=== PATIENT | male | born 1935 | race Caucasian/White ===

== ENCOUNTER → 2016-04-09 | Outpatient (CLI) | payer BC, MEDICARE, OTHER ==
[~2016-04-09] MED LIST: ASPI1TAB35 PO; CPRDOTS OT; LSN5 PO; METO25TA3 PO; ZCR40 PO
== END | disposition home or self-care (01) ==
LOC: C.LABBFT 07:38
PROVIDERS: ATTEND Urology
DX: N40.1 Benign prostatic hyperplasia with lower urinary tract symptoms (principal)

== ENCOUNTER → 2016-10-08 | Outpatient (CLI) | payer MEDICARE ==
[~2016-10-08] MED LIST changes: +OPTIRAY 320 IV PRN
[2016-10-08 11:12] LABS: ISTAT CREATININE 1.4 mg/dl (0.6-1.3); ISTAT HEMOGLOBIN 13.6 g/dl (14.0-18.0); ISTAT IONIZED CALCIUM 1.22 mmol/l (1.12-1.32)
--- NOTE | 2016-10-08 11:27 | DIAGNOSTIC IMAGING REPORT ---
ABDOMEN COMBO CT DOSE: 1076.84 mGycm HISTORY: Pancreatic cyst W W/OUT, PANCREAS TIC CYST TECHNIQUE: Multiaxial CT images of the abdomen was performed pre and post intravenous contrast enhancement. A dose lowering technique was utilized adhering to the principles of ALARA. COMPARISON STUDY: 10/13/2015 FINDINGS: Lung bases are clear. Several small renal cysts are unchanged. Liver is uniform throughout. There is a small gallstone. Kidneys negative for hydronephrosis. The cystic nodule of the pancreatic head currently measures 19 x 12 mm essentially unchanged in the prior study. There are no new or interval findings within the pancreas or liver. Kidneys remain negative for hydronephrosis. There is no significant abdominal retroperitoneal adenopathy. Bowel pattern is nonobstructive. IMPRESSION: 1. Unchanged exam compared to the prior study. 2. Unchanging 19 x 12 mm cystic nodule within the pancreatic head 3. Small unchanging renal cyst. 4. Small gallstone also unchanged. 5. No new or interval findings. The above report was generated using voice recognition software. It may contain grammatical, syntax or spelling errors. Electronically signed by: Gopi Pickard M.D. 10/08/2016 11:26 AM Dictated Date/Time: 10/08/2016 11:20 AM
== END | disposition home or self-care (01) ==
LOC: C.CTS 10:34
PROVIDERS: ATTEND Internal Medicine Gastroenterology
DX: K86.2 Cyst of pancreas (principal)

== ENCOUNTER → 2016-11-13 | Outpatient (CLI) | payer MEDICARE ==
[~2016-11-13] MED LIST changes: -OPTIRAY 320 IV PRN
[2016-11-13 16:39] LABS: BASO % 0.3 %; BASO ABS # 0.03 K/uL (0-0.2); COMPLETE YES; EOS % 1.9 %; HEMATOCRIT 39.6 % (42-52); IG% 0.4 %; LYMPH % 23.9 %; LYMPH ABS # 2.29 K/uL (1.2-3.4); MEAN CELL VOLUME 91.2 fL (80-100); MEAN CORPUSCULAR HEMOGLOBIN 29.7 pg (25-34); MEAN CORPUSCULAR HGB CONC 32.6 g/dl (32-36); MEAN PLATELET VOLUME 10.2 fL (7.4-10.4); NEUT % 64.5 %; PLATELET COUNT 216 K/uL (130-400); RED BLOOD COUNT 4.34 M/uL (4.7-6.1); WHITE BLOOD COUNT 9.59 K/uL (4.8-10.8)
[2016-11-13 17:01] LABS: BLOOD UREA NITROGEN 25 mg/dl (7-18); BUN/CREATININE RATIO 17.6 (10-20); CALCIUM 9.5 mg/dl (8.5-10.1); CARBON DIOXIDE 27 mmol/L (21-32); CHLORIDE 99 mmol/L (98-107); GLUCOSE 98 mg/dl (70-99); PHOSPHORUS 3.8 mg/dl (2.5-4.9); POTASSIUM 4.6 mmol/L (3.5-5.1); SODIUM 132 mmol/L (136-145)
== END | disposition home or self-care (01) ==
LOC: C.LABBFT 13:50
PROVIDERS: ATTEND Internal Medicine
DX: D64.9 Anemia, unspecified (principal); N18.3 Chronic kidney disease, stage 3 (moderate); E55.9 Vitamin D deficiency, unspecified

== ENCOUNTER → 2016-12-02 | Outpatient (CLI) | payer MEDICARE ==
[2016-12-02 12:33] LABS: BLOOD UREA NITROGEN 15 mg/dl (7-18); BUN/CREATININE RATIO 10.4 (10-20); CALCIUM 9.1 mg/dl (8.5-10.1); CARBON DIOXIDE 26 mmol/L (21-32); CHLORIDE 100 mmol/L (98-107); GLUCOSE 98 mg/dl (70-99); POTASSIUM 4.4 mmol/L (3.5-5.1); SODIUM 134 mmol/L (136-145)
== END | disposition home or self-care (01) ==
LOC: C.LABBFT 08:27
PROVIDERS: ATTEND Internal Medicine
DX: E87.1 Hypo-osmolality and hyponatremia (principal)

== ENCOUNTER → 2016-12-03 | Outpatient (CLI) | payer MEDICARE ==
[2016-12-03 12:49] LABS: BLOOD UREA NITROGEN 19 mg/dl (7-18); BUN/CREATININE RATIO 13.2 (10-20); CALCIUM 9.3 mg/dl (8.5-10.1); CARBON DIOXIDE 25 mmol/L (21-32); CHLORIDE 102 mmol/L (98-107); GLUCOSE 99 mg/dl (70-99); POTASSIUM 4.2 mmol/L (3.5-5.1); SODIUM 135 mmol/L (136-145)
== END | disposition home or self-care (01) ==
LOC: C.LABBFT 09:21
PROVIDERS: ATTEND Internal Medicine
DX: E87.1 Hypo-osmolality and hyponatremia (principal)

== ENCOUNTER → 2016-12-18 | Outpatient (CLI) | payer MEDICARE ==
[2016-12-18 12:39] LABS: BLOOD UREA NITROGEN 28 mg/dl (7-18); BUN/CREATININE RATIO 19.6 (10-20); CALCIUM 9.3 mg/dl (8.5-10.1); CARBON DIOXIDE 25 mmol/L (21-32); CHLORIDE 102 mmol/L (98-107); GLUCOSE 98 mg/dl (70-99); POTASSIUM 4.3 mmol/L (3.5-5.1); SODIUM 134 mmol/L (136-145)
== END | disposition home or self-care (01) ==
LOC: C.LABBFT 08:59
PROVIDERS: ATTEND Internal Medicine
DX: E87.1 Hypo-osmolality and hyponatremia (principal)

== ENCOUNTER 2017-05-01 12:22 | Observation (INO) | payer MEDICARE ==
[~2017-05-01] VITALS: Ht 167.6 cm; Wt 96.4 kg
[2017-05-01] MEDS ORDERED: SODIUM CHLORIDE 0.9% 1000ML 1,000 ML IV STA (12:51)
[2017-05-01 13:00] LABS: BASO % 0.3 %; BASO ABS # 0.02 K/uL (0-0.2); EOS % 0.3 %; EOS ABS # 0.02 K/uL (0-0.5); HEMATOCRIT 39.8 % (42-52); HEMOGLOBIN 13.4 g/dL (14.0-18.0); IG# 0.04 K/uL (0.00-0.02); LYMPH % 7.5 %; LYMPH ABS # 0.54 K/uL (1.2-3.4); MEAN CELL VOLUME 89.4 fL (80-100); MEAN CORPUSCULAR HEMOGLOBIN 30.1 pg (25-34); MEAN CORPUSCULAR HGB CONC 33.7 g/dl (32-36); MEAN PLATELET VOLUME 9.4 fL (7.4-10.4); MONO % 9.2 %; MONO ABS # 0.66 K/uL (0.11-0.59); NEUT % 82.1 %; NEUT ABS # 5.91 K/uL (1.4-6.5); PLATELET COUNT 131 K/uL (130-400); RED CELL DISTRIBUTION WIDTH CV 13.3 % (11.5-14.5); RED CELL DISTRIBUTION WIDTH SD 43.6 fL (36.4-46.3); WHITE BLOOD COUNT 7.19 K/uL (4.8-10.8)
[2017-05-01 13:19] LABS: ALBUMIN 3.7 gm/dl (3.4-5.0); CREATININE 1.96 mg/dl (0.60-1.40); POTASSIUM 4.7 mmol/L (3.5-5.1)
--- NOTE | 2017-05-01 13:19 | DIAGNOSTIC IMAGING REPORT ---
HEAD CT NONCONTRAST CT DOSE: 537.48 mGy.cm HISTORY: EVALUATE ALTERED MENTAL STATUS/WEAKNESS TECHNIQUE: Multiaxial CT images of the head were performed without the use of intravenous contrast. Automated exposure control was utilized for this study. A dose lowering technique was utilized adhering to the principles of ALARA. Comparison: Head CT 05/11/2012. Findings: The paranasal sinuses and mastoid air cells are clear. The calvarium and skull base are intact. There is no mass, hematoma, midline shift, acute infarct. White matter hypodensity is nonspecific but suggestive of microvascular ischemic change. The ventricles and sulci demonstrate mild age-related involutional changes. Impression: No acute intracranial abnormality. Atrophy and microvascular ischemic changes. Electronically signed by: Pedro Irizarry M.D. 05/01/2017 1:18 PM Dictated Date/Time: 05/01/2017 1:03 PM
--- NOTE | 2017-05-01 13:21 | DIAGNOSTIC IMAGING REPORT ---
CHEST ONE VIEW PORTABLE HISTORY: EVALUATE ALTERED MENTAL STATUS/WEAKNESS COMPARISON: Chest 05/11/2012. FINDINGS: Calcified granuloma the left lung base, unchanged. The right lung remains clear. The heart is stable in size. There are poststernotomy changes. No pneumothorax. Left basilar linear densities. IMPRESSION: Left basilar linear densities are nonspecific but favor atelectasis. A pneumonia could also have a similar appearance in the appropriate clinical setting. Electronically signed by: Pedro Irizarry M.D. 05/01/2017 1:19 PM Dictated Date/Time: 05/01/2017 1:18 PM
[2017-05-01 13:28] LABS: TOTAL PROTEIN 7.5 gm/dl (6.4-8.2)
[2017-05-01] MEDS ORDERED: PRS5 PO (13:54)
[2017-05-01] MEDS ORDERED: ARC10 PO (13:54)
[2017-05-01] MEDS ORDERED: CHOL2000 PO (13:54)
--- NOTE | 2017-05-01 17:18 | EMERGENCY ROOM VISIT NOTE ---
History Report prepared by Jessica: Eyal Littlejohn Under the Supervision of: Dr. Cecil Pastrana D.O. First contact with patient: 12:41 Stated Complaint: SYNCOPE History of Present Illness The patient is a 81 year old male who presents to the Emergency Room by EMS with complaints of a syncopal episode occurring just prior to arrival. He has a history of dementia. The patient states that he just rested his head on a table , and his saw this and became worried that he had passed out. He states that he rested his head down because he was tired, and that he did not pass out. The patient has no complaints. He denies headache, change in vision, LOC, fevers, chest pain, shortness of breath, nausea, vomiting, diarrhea, pain with urination, and melena. The patient's states that the patient did become unresponsive during the episode today. She states that she walked into the room while the patient was reading the paper, before leaving again. She came back moments later and found the patient to be unresponsive, with his head on the table. She was unable to arouse him at the time. The patient's states that she called her daughter to come help. She states that the patient was slightly arousable upon arrival of her daughter, but fell back asleep very quickly. Source of History: patient Onset: Just prior to arrival Quality: other (syncope) Timing: other (episode) Associated Symptoms: + LOC, No fevers, No chills, No chest pain, No SOB, No nausea, No vomiting, No diarrhea, No urinary symptoms Review of Systems See HPI for pertinent positives & negatives. A total of 10 systems reviewed and were otherwise negative. 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 (2) CORON ATHEROSCLER NOS TYPE VESSEL, LA JOLLA OR GRAFT (3) HYPERTENSION NOS (4) IRON DEFIC ANEMIA NOS (5) PURE HYPERCHOLESTEROLEM Family History Heart disease Social History Smoking Status: Never Smoker Alcohol Use: occasionally Marital Status: Housing Status: lives with family Occupation Status: retired Current/Historical Medications Scheduled Aspirin (Jc Aspirin), 325 MG PO DAILY Cholecalciferol (Vitamin D3), 1 CAP PO DAILY Donepezil HCl (Donepezil HCl), 1 TAB PO HS Finasteride (Finasteride), 1 TAB PO DAILY Lisinopril (Lisinopril), 5 MG PO DAILY Metoprolol Succ (Toprol Xl) (Toprol-Xl), 25 MG PO DAILY Simvastatin (Simvastatin), 60 MG PO DAILY Allergies Coded Allergies: Sulfa Antibiotics (Unverified Allergy, Unknown, RASH, 05/01/17) Atorvastatin (Unverified Adverse Reaction, Unknown, MYALGIA, 05/01/17) Pravastatin (Unverified Adverse Reaction, Unknown, MYAGLIA, 05/01/17) Rosuvastatin (Unverified Adverse Reaction, Unknown, MYALGIA, 05/01/17) Physical Exam Vital Signs Date Time Temp Pulse Resp B/P (MAP) Pulse Ox O2 Delivery O2 Flow Rate FiO2 05/01/17 16:26 71 18 151/69 97 Room Air 05/01/17 15:32 36.8 74 18 133/71 98 Room Air 05/01/17 14:10 70 128/62 100 Room Air 05/01/17 12:52 98 Room Air 05/01/17 12:43 36.4 63 20 112/65 98 Room Air 05/01/17 12:42 62 Physical Exam GENERAL: Sitting up in bed, alert, well appearing, well nourished, no distress, non-toxic EYE EXAM: normal conjunctiva. PERRL and EOM's intact. OROPHARYNX: no exudate, no erythema, lips, buccal mucosa, and tongue normal and mucous membranes are moist NECK: supple, no nuchal rigidity, no adenopathy, non-tender LUNGS: Clear to auscultation. Normal chest wall mechanics HEART: no murmurs, S1 normal and S2 normal ABDOMEN: abdomen soft, non-tender, normo-active bowel sounds, no masses, no rebound or guarding. BACK: Back is symmetrical on inspection and there is no deformity, no midline tenderness, no CVA tenderness. SKIN: no rashes and no bruising UPPER EXTREMITIES: upper extremities are grossly normal. LOWER EXTREMITIES: No pitting edema. NEURO EXAM: Awake, alert, oriented to person, place, but not year. Cranial nerves II-XII intact, normal speech, no weakness of arms, no weakness of legs. No drift. Finger to nose intact. Gross sensation intact. Medical Decision & Procedures ER Provider Diagnostic Interpretation: Radiology results as stated below per my review and the radiologist's interpretation: HEAD CT NONCONTRAST Findings: The paranasal sinuses and mastoid air cells are clear. The calvarium and skull base are intact. There is no mass, hematoma, midline shift, acute infarct. White matter hypodensity is nonspecific but suggestive of microvascular ischemic change. The ventricles and sulci demonstrate mild age-related involutional changes. Impression: No acute intracranial abnormality. Atrophy and microvascular ischemic changes. Electronically signed by: Pedro Irizarry M.D. 05/01/2017 1:18 PM CHEST ONE VIEW PORTABLE FINDINGS: Calcified granuloma the left lung base, unchanged. The right lung remains clear. The heart is stable in size. There are poststernotomy changes. No pneumothorax. Left basilar linear densities. IMPRESSION: Left basilar linear densities are nonspecific but favor atelectasis. A pneumonia could also have a similar appearance in the appropriate clinical setting. Electronically signed by: Pedro Irizarry M.D. 05/01/2017 1:19 PM Laboratory Results 05/01/17 12:45 Red Blood Count 4.45, Mean Corpuscular Volume 89.4, Mean Corpuscular Hemoglobin 30.1, Mean Corpuscular Hemoglobin Concent 33.7, Mean Platelet Volume 9.4, Neutrophils (%) (Auto) 82.1, Lymphocytes (%) (Auto) 7.5, Monocytes (%) (Auto) 9.2, Eosinophils (%) (Auto) 0.3, Basophils (%) (Auto) 0.3, Neutrophils # (Auto) 5.91, Lymphocytes # (Auto) 0.54, Monocytes # (Auto) 0.66, Eosinophils # (Auto) 0.02, Basophils # (Auto) 0.02 05/01/17 12:45 Test 05/01/17 12:45 05/01/17 16:30 White Blood Count 7.19 K/uL (4.8-10.8) Red Blood Count 4.45 M/uL (4.7-6.1) Hemoglobin 13.4 g/dL (14.0-18.0) Hematocrit 39.8 % (42-52) Mean Corpuscular Volume 89.4 fL (80-100) Mean Corpuscular Hemoglobin 30.1 pg (25-34) Mean Corpuscular Hemoglobin Concent 33.7 g/dl (32-36) Platelet Count 131 K/uL (130-400) Mean Platelet Volume 9.4 fL (7.4-10.4) Neutrophils (%) (Auto) 82.1 % Lymphocytes (%) (Auto) 7.5 % Monocytes (%) (Auto) 9.2 % Eosinophils (%) (Auto) 0.3 % Basophils (%) (Auto) 0.3 % Neutrophils # (Auto) 5.91 K/uL (1.4-6.5) Lymphocytes # (Auto) 0.54 K/uL (1.2-3.4) Monocytes # (Auto) 0.66 K/uL (0.11-0.59) Eosinophils # (Auto) 0.02 K/uL (0-0.5) Basophils # (Auto) 0.02 K/uL (0-0.2) RDW Standard Deviation 43.6 fL (36.4-46.3) RDW Coefficient of Variation 13.3 % (11.5-14.5) Immature Granulocyte % (Auto) 0.6 % Immature Granulocyte # (Auto) 0.04 K/uL (0.00-0.02) Prothrombin Time 10.9 SECONDS (9.0-12.0) Prothromb Time International Ratio 1.0 (0.9-1.1) Activated Partial Thromboplast Time 26.0 SECONDS (21.0-31.0) Partial Thromboplastin Ratio 1.0 Anion Gap 8.0 mmol/L (3-11) Est Creatinine Clear Calc Drug Dose 26.7 ml/min Estimated GFR () 36.1 Estimated GFR (Non- 31.2 BUN/Creatinine Ratio 13.3 (10-20) Calcium Level 9.0 mg/dl (8.5-10.1) Magnesium Level 2.4 mg/dl (1.8-2.4) Total Bilirubin 0.6 mg/dl (0.2-1) Direct Bilirubin 0.2 mg/dl (0-0.2) Aspartate Amino Transf (AST/SGOT) 33 U/L (15-37) Alanine Aminotransferase (ALT/SGPT) 29 U/L (12-78) Alkaline Phosphatase 74 U/L (45-117) Troponin I 0.031 ng/ml (0-0.045) Total Protein 7.5 gm/dl (6.4-8.2) Albumin 3.7 gm/dl (3.4-5.0) Thyroid Stimulating Hormone (TSH) 4.870 uIu/ml (0.300-4.500) Urine Color YELLOW Urine Appearance CLEAR (CLEAR) Urine pH 5.5 (4.5-7.5) Urine Specific [place] 1.016 (1.000-1.030) Urine Protein NEG (NEG) Urine Glucose (UA) NEG (NEG) Urine Ketones NEG (NEG) Urine Occult Blood NEG (NEG) Urine Nitrite NEG (NEG) Urine Bilirubin NEG (NEG) Urine Urobilinogen NEG (NEG) Urine Leukocyte Esterase NEG (NEG) Laboratory results per my review. Medications Administered Medications (Trade) Dose Ordered Sig/Teresa Route Start Time Stop Time Status Last Admin Dose Admin Sodium Chloride 1,000 ml @ 999 mls/hr Q1H1M STAT IV 05/01/17 12:51 05/01/17 13:51 DC 05/01/17 12:51 999 MLS/HR ECG Per My Interpretation Indication: syncope Rate (beats per minute): 58 Rhythm: sinus bradycardia Findings: no ectopy, other (Normal axis. ) ED Course ED COURSE: Vital signs were reviewed and appeared normal. The patients medical record was reviewed The above diagnostic studies were performed and reviewed. ED treatments and interventions as stated above. 1246: The patient was evaluated in room A2. A complete history and physical examination was performed. 1251: Ordered Sodium Chloride 1000 ml @ 999 mls/hr IV. 1355: I spoke with the patient's and daughter. 1545: Upon reevaluation, the patient is resting comfortably. I discussed my findings with the patient and he understands and agrees with the treatment plan. Based on the patients age, coexisting illnesses, exam and lab findings the decision to treat as an inpatient was made. The patient remained stable while under my care. The patient will be evaluated for further management. Medical Decision Differential diagnosis includes etiologies such as vasovagal event, infection, hypoglycemia, electrolyte abnormalities, cardiac sources, intracerebral event, toxicologic, neurologic, as well as others were entertained. Patient is an 81-year-old male with a history of dementia that presents to ER for becoming unresponsive and passing out. Patient was in the kitchen with and ended up face down on to the table. She tried to wake him up was unsuccessful. The daughter eventually arrived and stimulated him. He woke up slightly but then passed out again. He was pale and diaphoretic. CBC was unremarkable. BMP shows a slightly elevated creatinine at 1.9 which is slightly increased from baseline. LFTs normal bilirubin was unremarkable. Troponin was detectable but not positive at 0.031. TSH was slightly elevated at 4.8. UA was negative. EKG was nondiagnostic. CT head was negative. Patient was given fluids. Patient's family at the bedside. With this recurrent episodes of syncope/prolonged period of unresponsiveness and with his age I felt it was most reasonable to observe him overnight. I did discuss case with internal medicine for further evaluation. Medication Reconcilliation Current Medication List: was personally reviewed by me Blood Pressure Screening Patient's blood pressure: Normal blood pressure Blood pressure disposition: Did not require urgent referral Consults Time Called: 1340 Consulting Physician: Dr. Henry - [facility] [place] Hospitalist Returned Call: [phone] I reviewed the patient's case with Dr. Henry. [facility] [place] will evaluate the patient for further management. Impression Primary Impression: Syncopal episodes Scribe Attestation The scribe's documentation has been prepared under my direction and personally reviewed by me in its entirety. I confirm that the note above accurately reflects all work, treatment, procedures, and medical decision making performed by me. Departure Information Dispostion Being Evaluated By Hospitalist Referrals Ezequiel Parra M.D. (PCP) Problem Qualifiers Primary Impression: Syncopal episodes Syncope type: unspecified Qualified Codes: R55 - Syncope and collapse
[2017-05-01] MEDS ORDERED: MAGNESIUM HYDROXIDE SUSP 30 ML UDC PO PRN (17:45)
[2017-05-01] MEDS ORDERED: ALUMINUM/MAGNESIUM/SIMETH (MAALOX MAX) 30 ML UDC PO PRN (17:45)
[2017-05-01] MEDS ORDERED: ACETAMINOPHEN 325 MG TAB PO PRN (17:45)
[2017-05-01] MEDS ORDERED: ONDANSETRON INJ 2 MG/ML 2 ML VIAL IV PRN (17:45)
[2017-05-01] MEDS ORDERED: POLYETHYLENE (MIRALAX) 17 GM PACK PO PRN (17:45)
--- NOTE | 2017-05-01 18:17 | History and Physical ---
History & Physical Date & Time of Service: May 01, 2017 at 17:50 Chief Complaint: Syncope Primary Care Physician: Ezequiel Parra M.D. History of Present Illness Source: patient 81 y/o M Hx HTN, HPL, dementia, syncope admission 2013, bradycardia, CAD, carotid stenosis - distant history of NM. Presents following an apparent syncopal episode. The pt was sitting at his kitchen table reading a paper. His exited the room briefly and returned to find him with his head on the table. He was unresponsive for approximately 2 minutes. No seizure activity was reported. His called their daughter who arrived a few minutes later to find the pt confused. He remained confused for at least 5 additional minutes. His symptoms had resolved on route to the hospital. Initial labs are notable for NAY. His HR on arrival to the ER was in the low 50s and improved to > 70 at the time of admission. he pt has no recollection of the episode and cannot provide a reliable ROS. Information is obtained from his and daughter. Past Medical/Surgical History 1) CAD 2) Bradycardia 3) HTN 4) HPL 5) Dementia 6) Syncope 2013 Family History Heart disease Social History Smoking Status: Never Smoker Marital Status: Occupational Status: retired Immunizations History of Influenza Vaccine: No History of Tetanus Vaccine?: utd History of Pneumococcal: No History of Hepatitis B Vaccine: No Multi-Drug Resistant Organisms History of MDRO: No Allergies Coded Allergies: Sulfa Antibiotics (Unverified Allergy, Unknown, RASH, 05/01/17) Atorvastatin (Unverified Adverse Reaction, Unknown, MYALGIA, 05/01/17) Pravastatin (Unverified Adverse Reaction, Unknown, MYAGLIA, 05/01/17) Rosuvastatin (Unverified Adverse Reaction, Unknown, MYALGIA, 05/01/17) Home Medications Scheduled Aspirin (Jc Aspirin), 325 MG PO DAILY Cholecalciferol (Vitamin D3), 1 CAP PO DAILY Donepezil HCl (Donepezil HCl), 1 TAB PO HS Finasteride (Finasteride), 1 TAB PO DAILY Lisinopril (Lisinopril), 5 MG PO DAILY Metoprolol Succ (Toprol Xl) (Toprol-Xl), 25 MG PO DAILY Simvastatin (Simvastatin), 60 MG PO DAILY Review of Systems Cannot obtain from pt - brought in following a syncopal episode as above Constitutional: No fever, No chills, No sweats Eyes: No worsening of vision ENT: No hearing loss, No nasal symptoms Respiratory: No cough, No wheezing Cardiovascular: No chest pain, No orthopnea, No PND Abdomen: No pain, No nausea, No vomiting Musculoskeletal: No joint pain Genitourinary - Male: No hematuria, No dysuria Neurologic: No memory loss, No weakness Psychiatric: No depression symptoms Endocrine: No fatigue Hematologic / Lymphatic: No abnormal bleeding/bruising Integumentary: No rash Allergic / Immunologic: No environmental allergies Physical Exam Vital Signs Date Time Temp Pulse Resp B/P (MAP) Pulse Ox O2 Delivery O2 Flow Rate FiO2 05/01/17 16:26 71 18 151/69 97 Room Air 05/01/17 15:32 36.8 74 18 133/71 98 Room Air 05/01/17 14:10 70 128/62 100 Room Air 05/01/17 12:52 98 Room Air 05/01/17 12:43 36.4 63 20 112/65 98 Room Air 05/01/17 12:42 62 General Appearance: WD/WN Head: normocephalic Eyes: normal inspection ENT: normal ENT inspection, pharynx normal Neck: supple, no JVD Respiratory/Chest: chest non-tender, lungs clear, + rales Cardiovascular: no gallop, no JVD Abdomen/GI: normal bowel sounds, non tender, soft Back: normal inspection, no CVA tenderness Extremities/Musculoskelatal: normal inspection, no calf tenderness, normal capillary refill 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, no motor/sensory deficits, alert Skin: normal color Diagnostics Laboratory Results Results Past 24 Hours Test 05/01/17 12:45 05/01/17 16:30 Range/Units White Blood Count 7.19 4.8-10.8 K/uL Red Blood Count 4.45 4.7-6.1 M/uL Hemoglobin 13.4 14.0-18.0 g/dL Hematocrit 39.8 42-52 % Mean Corpuscular Volume 89.4 80-100 fL Mean Corpuscular Hemoglobin 30.1 25-34 pg Mean Corpuscular Hemoglobin Concent 33.7 32-36 g/dl Platelet Count 131 130-400 K/uL Mean Platelet Volume 9.4 7.4-10.4 fL Neutrophils (%) (Auto) 82.1 % Lymphocytes (%) (Auto) 7.5 % Monocytes (%) (Auto) 9.2 % Eosinophils (%) (Auto) 0.3 % Basophils (%) (Auto) 0.3 % Neutrophils # (Auto) 5.91 1.4-6.5 K/uL Lymphocytes # (Auto) 0.54 1.2-3.4 K/uL Monocytes # (Auto) 0.66 0.11-0.59 K/uL Eosinophils # (Auto) 0.02 0-0.5 K/uL Basophils # (Auto) 0.02 0-0.2 K/uL RDW Standard Deviation 43.6 36.4-46.3 fL RDW Coefficient of Variation 13.3 11.5-14.5 % Immature Granulocyte % (Auto) 0.6 % Immature Granulocyte # (Auto) 0.04 0.00-0.02 K/uL Prothrombin Time 10.9 9.0-12.0 SECONDS Prothromb Time International Ratio 1.0 0.9-1.1 Activated Partial Thromboplast Time 26.0 21.0-31.0 SECONDS Partial Thromboplastin Ratio 1.0 Sodium Level 132 136-145 mmol/L Potassium Level 4.7 3.5-5.1 mmol/L Chloride Level 98 98-107 mmol/L Carbon Dioxide Level 26 21-32 mmol/L Anion Gap 8.0 3-11 mmol/L Blood Urea Nitrogen 26 7-18 mg/dl Creatinine 1.96 0.60-1.40 mg/dl Est Creatinine Clear Calc Drug Dose 26.7 ml/min Estimated GFR () 36.1 Estimated GFR (Non- 31.2 BUN/Creatinine Ratio 13.3 10-20 Random Glucose 152 70-99 mg/dl Calcium Level 9.0 8.5-10.1 mg/dl Magnesium Level 2.4 1.8-2.4 mg/dl Total Bilirubin 0.6 0.2-1 mg/dl Direct Bilirubin 0.2 0-0.2 mg/dl Aspartate Amino Transf (AST/SGOT) 33 15-37 U/L Alanine Aminotransferase (ALT/SGPT) 29 12-78 U/L Alkaline Phosphatase 74 45-117 U/L Troponin I 0.031 0-0.045 ng/ml Total Protein 7.5 6.4-8.2 gm/dl Albumin 3.7 3.4-5.0 gm/dl Thyroid Stimulating Hormone (TSH) 4.870 0.300-4.500 uIu/ml Urine Color YELLOW Urine Appearance CLEAR CLEAR Urine pH 5.5 4.5-7.5 Urine Specific [place] 1.016 1.000-1.030 Urine Protein NEG NEG Urine Glucose (UA) NEG NEG Urine Ketones NEG NEG Urine Occult Blood NEG NEG Urine Nitrite NEG NEG Urine Bilirubin NEG NEG Urine Urobilinogen NEG NEG Urine Leukocyte Esterase NEG NEG EKG Sinus bradycardia at 52 BPM - no evidence of acute ischemia Impression Assessment and Plan 81 y/o M Hx HTN, HPL, dementia, syncope admission 2012, bradycardia, CAD - distant history of NM. Presents following an apparent syncopal episode. The pt was sitting at his kitchen table reading a paper. His exited the room briefly and returned to find him with his head on the table. He was unresponsive for approximately 2 minutes. No seizure activity was reported. His called their daughter who arrived a few minutes later to find the pt confused. He remained confused for at least 5 additional minutes. His symptoms had resolved on route to the hospital. Initial labs are notable for NAY. His HR on arrival to the ER was in the low 50s and improved to > 70 at the time of admission. 1) Syncope - possibly related to bradycardia - orthostasis is another possibility considering his increased creatinine, however, it does not appear that he attempted to stand up and he does not appear clinically dehydrated. 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 There was no reported seizure activity, however, seizure cannot be entirely discounted - would w/u if recurs and no cardiac source is identified. 2) NAY - cause is not clear - no recent reports of decreased intake, nausea/ vomiting or diarrhea. We will provide IVF overnight and trend a BMP. Urine lytes are ordered. 3) CAD - no evidence of ACS - cont ASA, statin 4) HTN - cont Lisinopril 5) HPL - cont Simvastatin Full code - Heparin prophylaxis Total time for this admit including review of labs, meds, imaging, records - discussion with pt, family and ER attending - 33 min Level of Care Telemetry Resuscitation Status FULL RESUSCITATION VTE Prophylaxis VTE Risk Assessment Done? Y/N: Yes Risk Level: Moderate Given or contraindicated: Unfractionated heparin SQ
[2017-05-01 18:37] VITALS: O2SAT 97
[2017-05-01] MEDS ORDERED: IV FLUIDS COMPLETED PRN (19:00)
[2017-05-01 20:30] VITALS: BP 172/73; PULSE 76; TEMP 37; Ht 167.6 cm; Wt 96.4 kg
[2017-05-01] MEDS ORDERED: DONEPEZIL HCL 10 MG TAB PO SCH (21:00)
[2017-05-02] VITALS: BP_SYST 168; BP_SYST 178; BP_SYST 184; BP_DIAS 69; BP_DIAS 79; BP_DIAS 83; PULSE 77; PULSE 84; PULSE 86; TEMP 37.1; O2SAT 96
[2017-05-02 04:43] VITALS: BP 145/79; PULSE 72; TEMP 37.1; O2SAT 97
[2017-05-02 07:37] VITALS: BP 96/62; PULSE 74; TEMP 36.7; O2SAT 95
[2017-05-02 08:58] LABS: HEMOGLOBIN 13.2 g/dL (14.0-18.0); MEAN CORPUSCULAR HEMOGLOBIN 30.1 pg (25-34); MEAN CORPUSCULAR HGB CONC 33.8 g/dl (32-36); MEAN PLATELET VOLUME 9.7 fL (7.4-10.4); PLATELET COUNT 130 K/uL (130-400); RED CELL DISTRIBUTION WIDTH CV 13.1 % (11.5-14.5); RED CELL DISTRIBUTION WIDTH SD 43.2 fL (36.4-46.3); WHITE BLOOD COUNT 4.59 K/uL (4.8-10.8)
[2017-05-02] MEDS ORDERED: ASPIRIN/ALUM/MAGNES/CAL CARB 325 MG TAB PO SCH (09:00)
[2017-05-02] MEDS ORDERED: SIMVASTATIN 20 MG TAB PO SCH (09:00)
[2017-05-02] MEDS ORDERED: FINASTERIDE 5 MG TAB PO SCH (09:00)
[2017-05-02] MEDS ORDERED: LISINOPRIL 5 MG TAB PO SCH (09:00)
[2017-05-02] MEDS ORDERED: CHOLECALCIFEROL 1000 INTER.UNIT TAB PO SCH (09:00)
[2017-05-02 09:30] LABS: CALCIUM 8.6 mg/dl (8.5-10.1); CREATININE 1.34 mg/dl (0.60-1.40); POTASSIUM 3.8 mmol/L (3.5-5.1)
[2017-05-02 11:24] VITALS: BP 148/74; PULSE 62; TEMP 36.9; O2SAT 94
--- NOTE | 2017-05-02 13:58 | DIAGNOSTIC IMAGING REPORT ---
TWO VIEW CHEST CLINICAL HISTORY: Syncope. FINDINGS: PA and lateral chest radiographs are compared to study dated 05/01/2017. The PA view is degraded by apical lordotic positioning. The patient is status post midline sternotomy. The heart is normal in size and there is atherosclerotic calcification of the thoracic aorta. Emphysema and chronic interstitial thickening similar to previous. A calcified granuloma seen at the left lung base. No airspace consolidation or pleural effusion is identified. There is no pneumothorax. The skeletal structures are osteopenic. A compression deformity is noted in the upper lumbar region. IMPRESSION: Emphysematous change with no acute cardiopulmonary abnormality. Electronically signed by: Ran Sahni M.D. 05/02/2017 1:56 PM Dictated Date/Time: 05/02/2017 1:55 PM
--- NOTE | 2017-05-02 14:16 | CARDIOLOGY CONSULTATION ---
DATE OF CONSULTATION: 05/02/2017 PRIMARY PHYSICIAN: Ezequiel Parra M.D. REFERRING PHYSICIAN: Oleg Henry M.D. ATTENDING PHYSICIAN: Marvin Allen M.D. HISTORY OF PRESENT ILLNESS: The patient is an 81-year-old white male with a longstanding history of coronary artery disease. Status post non-ST elevation myocardial infarction in 2006. Subsequent cardiac catheterization revealed 3-vessel coronary artery disease as well as significant distal left main disease. He underwent 3-vessel CABG surgery on 12/01/[address] [facility]: TELLO - LAD; SVG - OM; SVG - PDA. He also has a history of cerebrovascular disease. Most recent carotid ultrasound was performed on 10/11/2016. It revealed 50-69% stenoses in the internal carotid arteries bilaterally. Greater than 50% stenoses in the external carotid arteries bilaterally. Antegrade flow in both vertebral arteries. No significant change compared to the study of November of 2015. The patient does have a prior history of syncope. He was admitted to [facility] 05/10/2012 for a syncopal episode after an episode of coughing. Monitoring revealed no significant arrhythmias. Echocardiogram at that time revealed normal global biventricular systolic function. Mild mitral and mild tricuspid regurgitation. Possible left ventricular diastolic dysfunction. He has no history of any documented arrhythmias. He does have a history of a sinus bradycardia. No history of CVA. No history of congestive heart failure. No history of any significant arrhythmias. The patient does have a history of dementia. He was admitted yesterday for observation after an episode of syncope yesterday morning. This had occurred at home. It was reported that he was sitting at his kitchen table reading the newspaper. This apparently was prior to breakfast by the patient's account. He had not yet taken his medications. He usually takes his medications after eating breakfast. He was reported to be unresponsive for approximately 2 minutes. The patient thinks he may have felt lightheaded prior to this episode. He does not recall any palpitations, dyspnea, or chest pain. Following his loss of consciousness, he was confused for a few minutes. Because of this episode, he was brought to the Emergency Department for evaluation. In the Emergency Department, his initial blood pressure was 112/65. His initial pulse rate was 62 beats per minute. His electrocardiogram at 12:37 revealed sinus bradycardia, rate of 58 beats per minute. Normal AV conduction. Electrocardiogram otherwise without any significant abnormalities. Minor nonspecific T-wave changes. The electrocardiogram was reviewed by me today. The patient was admitted to a monitored bed on the medical floor. Since admission, he reports no further episodes of lightheadedness. There has been no syncope. Monitor history since admission reveals sinus rhythm and sinus bradycardia. No evidence of atrioventricular block. No arrhythmias. Monitor history reviewed by me. The patient states until yesterday, he had recently been doing well. Stable exercise tolerance and stamina. No chest pain or other anginal type pains. No dyspnea at rest or with his normal activities. No orthopnea, PND, or palpitations. Prior to yesterday morning, no recent episodes of lightheadedness. No recent history of syncope until yesterday's episode. He denies any focal motor weakness. No facial weakness. No acute visual changes. No myalgias. No muscle weakness. His appetite has been good. No abdominal pain or nausea. No symptoms of bleeding. No symptoms of infection. No pulmonary complaints. No urinary complaints. No new HEENT complaints. He does have chronic hearing loss. PAST MEDICAL HISTORY: 1. Coronary artery disease as above. 2. Carotid artery disease as above. 3. Dyslipidemia. 4. Hypertension. 5. History of anemia. 6. Stage III chronic kidney disease. 7. History of hyperglycemia. 8. History of GE reflux disease. 9. Dementia. 10. Neurocognitive deficit. 11. History of pancreatic pseudocyst. 12. History of vitamin D deficiency. 13. History of anemia. 14. History of urinary retention. 15. History of ear infections. 16. He does not have a history of seizure disorder. PAST SURGICAL HISTORY: Status post CABG surgery. FAMILY HISTORY: History of CAD in his father and a brother. History of heart failure in his mother. No family history of hypertension. REVIEW OF SYSTEMS: 1. As above. 2. No recent head trauma. ALLERGIES AND ADVERSE DRUG REACTIONS: ROSUVASTATIN, ATORVASTATIN, PRAVASTATIN, AND SULFA DRUGS. MEDICATIONS: At time of admission were aspirin 325 mg daily, finasteride 5 mg daily, simvastatin 60 mg daily, lisinopril 5 mg daily, metoprolol succinate ER 25 mg daily, donepezil 10 mg at bedtime, and vitamin D 2000 units daily. PHYSICAL EXAMINATION: GENERAL: The patient was sitting up in his bed. No distress. VITAL SIGNS: This morning with oral temperature is 36.7, pulse 74, blood pressure 96/62, this was at 7:37 a.m. At 4:43 a.m., his blood pressure was documented to be 145/79. Pulse oximetry 97% on room air. GENERAL APPEARANCE: Shows him to be in no distress. HEAD: Normal. EYES: Pupils equal and round. Anicteric. Conjunctivae normal. NECK: No jugular venous distension. Carotids 2/2, bilaterally. Normal upstroke. No bruits heard. LUNGS: Normal respiratory effort. Clear. No rales or wheezes. HEART: PMI normal. No lifts or heaves. Regular rate and rhythm. S1, S2 normal. No S3 or S4. A 1/6 systolic murmur at second intercostal space. No diastolic murmur or rub. ABDOMEN: Normal bowel sounds. No bruits. Soft. Mild suprapubic tenderness. EXTREMITIES: No pretibial edema. No cyanosis or clubbing. NEUROLOGIC: The patient is awake and alert. Motor grossly intact. PSYCHIATRIC: Affect is normal. PULSES: Distal pulses in all extremities palpable. DATA: Electrocardiogram as reported above. IMAGING DATA: Chest x-ray performed yesterday with possible atelectasis at left base. The chest x-ray was reviewed by me. LABORATORY DATA: Labs today with WBC 4.59, hemoglobin 13.2, hematocrit 39.0, and platelet count 130. INR yesterday was 1.0. Metabolic profile today with sodium 134, potassium 3.8, chloride 101, carbon dioxide 25, BUN 23, and creatinine 1.34. Yesterday's labs revealed a BUN of 26 with a creatinine of 1.96. TSH yesterday 4.870. Free T4 today is 0.90. B12 today 471, which is normal. Folate 21.62, which is also normal. Troponin I 0.031 yesterday and 0.040 today. AST 33. ALT 29. Magnesium 2.4. Albumin 3.7. ASSESSMENT: 1. Syncopal episode yesterday morning, witnessed by his . This reportedly occurred while he was sitting at the kitchen table. No seizure activity noted. The patient thinks he may have felt lightheaded prior to the episode. Otherwise, he has no recollection of the event. He does have a prior history of syncope during a coughing. This would suggest increased vagal tone. Since admission, he has had no significant arrhythmias noted. Very mild sinus bradycardia. No evidence of atrioventricular block on monitoring or electrocardiogram. All the patient's medications other than his vitamin D supplement could cause bradycardia or hypotension. Obviously, the lisinopril could cause hypertension. The metoprolol could cause bradycardia and hypertension. The finasteride could cause hypotension. Donepezil can cause bradycardia and syncope. Of note, is that the patient's creatinine was elevated yesterday. This would suggest that he may have had a component of intravascular volume depletion yesterday. This could have also contributed to hypotension. 2. Since admission, most blood pressures have been normal to elevated. The blood pressure at 7:37 a.m. this morning was the only low pressure noted. 3. History of coronary artery disease. No anginal symptoms. Electrocardiogram without ischemic ST or T-wave abnormalities. Troponin I is negative for myocardial injury. 4. Cerebrovascular disease. Moderate bilateral internal carotid artery stenoses. No history of cerebrovascular accident or transient ischemic attack. RECOMMENDATIONS: 1. Decrease metoprolol succinate ER to 12.5 mg daily. 2. No further cardiac workup at this time. 3. If the patient has further episodes of syncope in the near future, would then consider a 30-day cardiac event monitor. 4. It would be beneficial for the patient to remain well hydrated. 5. Increase activity. The above assessment and recommendations were discussed with Dr. Allen by me. Thank you for asking us to see this patient in cardiology consultation.
[2017-05-02 14:23] VITALS: BP 148/74; PULSE 62; TEMP 36.9; O2SAT 94
[2017-05-02] MEDS ORDERED: METO25TA3 PO (14:24)
[2017-05-02] MEDS ORDERED: DXY100 PO (14:24)
[2017-05-02 15:10] VITALS: BP 124/63; PULSE 65; TEMP 36.7; O2SAT 98
--- NOTE | 2017-05-02 17:14 | DIAGNOSTIC IMAGING REPORT ---
ULTRASOUND OF THE CAROTID ARTERIES CLINICAL HISTORY: Carotid stenosis COMPARISON STUDY: August 2013 TECHNIQUE: Real-time, grayscale, and color Doppler sonography of the carotid arteries was performed. Imaging reviewed in the transverse and longitudinal planes. NASCET criteria was utilized for stenosis calcification. FINDINGS: There is moderate calcific shadowing atherosclerotic plaque present bilaterally. The peak systolic velocity within the right internal carotid artery is 153 cm/sec. The systolic velocity ratio of right internal to common carotid artery is 2.3. The peak systolic velocity within the left internal carotid artery is 180 cm/sec. The systolic velocity ratio left internal to common carotid artery is 1.8. Antegrade flow is seen in the vertebral arteries. The external carotid arteries are patent. IMPRESSION: Persistent 50-69% bilateral internal carotid artery stenosis by velocity criteria. Electronically signed by: Tye Turner M.D. 05/02/2017 5:13 PM Dictated Date/Time: 05/02/2017 5:09 PM
--- NOTE | 2017-05-02 17:43 | Discharge Instructions ---
Discharge Instructions Date of Service May 02, 2017. Admission Reason for Admission: Syncope (passing out) Discharge Discharge Diagnosis / Problem: Passing out episode likely due to low heart rate and low blood pressure Discharge Goals Goal(s): Learn about illness, Diagnostic testing, Therapeutic intervention Activity Recommendations Activity Limitations: resume your previous activity (as tolerated) . Instructions / Follow-Up Instructions / Follow-Up From Dr Allen - It is suspected that you became mildly dehydrated over the last few days. I suspect you were not eating or drinking well because of your respiratory illness. As you became dehydrated your blood pressure and heart rate may have dropped leading to your passing out spell. Your labs suggested dehydration and with IV fluids those labs improved overnight. You were seen by Dr. Moran, your heart doctor, and there was no evidence of any heart attack or irregular heart rhythm that caused this event. Your CAT scan of the brain did not show any stroke or bleeding. Two chest x-rays failed to show any pneumonia. With that said you may be coming down with bronchitis. Please take - Doxycycline 100mg twice a day for 10 days. This antibiotic can cause heartburn. It can also cause a rash if you are exposed to sun but with our recent weather this should not be a problem. Your carotid doppler study showed 50-69% blockages in the carotid arteries on both sides but this is UNCHANGED from your last study in 2013. I do not believe the blockages in the carotids contributed to your episode. Lastly, Dr. Moran advised that your LOWER your metoprolol xl dose to 12.5mg (1/2 tablet) once a day. Follow-up: 1. Neisha Garvin PA-C on FridayMay 07 at 2:30 pm (Dr. Parra' s office) 2. See Dr. Moran in about 2 weeks Return to [facility] if - * you have recurrent dizziness or lightheadedness * you have another episode of passing out * you develop fever over 100.5 degrees * you develop weakness in your arms, legs, etc * any other concerns Current Hospital Diet Patient's current hospital diet: AHA Diet (Heart Healthy) Discharge Diet Recommended Diet: AHA Diet (Heart Healthy) Procedures Procedures Performed: CAT scan of the head - no stroke or bleeding. Carotid artery ultrasound - Pending Studies Studies pending at discharge: no Medical Emergencies . Who to Call and When: Medical Emergencies: If at any time you feel your situation is an emergency, please call 911 immediately. . Non-Emergent Contact Non-Emergency issues call your: Primary Care Provider Call Non-Emergent contact if: you have any medication questions . . "Provider Documentation" section prepared by Marvin Allen. . VTE Core Measure Inpt VTE Proph given/why not?: Unfractionated heparin SQ
--- NOTE | 2017-05-09 09:22 | Discharge Summary ---
Discharge Summary Date of Service May 09, 2017. Discharge Summary Admission Date: May 01, 2017 at 17:50 Discharge Date: May 02, 2017 Discharge Disposition: Home Principal Diagnosis: syncope likely 2nd to low BP and/or low HR Problems/Secondary Diagnoses: 1) CAD with prior h/o DE 2) Bradycardia 3) HTN 4) Hyperlipidemia 5) Dementia 6) Syncope 2012 7) Hyponatremia - improved 8) acute kidney injury - resolved 9) probable bronchitis 10) carotid stenosis b/l Immunizations: Have You Had Influenza Vaccine: No History of Tetanus Vaccine?: utd History of Pneumococcal: No History of Hepatitis B Vaccine: No Procedures: 1. CT head - atrophy only; no acute ICH or stroke. 2. carotid duplex study - IMPRESSION: Persistent 50-69% bilateral internal carotid artery stenosis by velocity criteria. No change from August 2013 study. Consultations: cardiology - Bora Moran MD Medication Reconciliation New Medications: Doxycycline Hyclate (Doxycycline Hyclate) 100 Mg Cap 100 MG PO BID for 10 Days, #20 CAP 0 Refills Changed Medications: Metoprolol Succ (Toprol Xl) (Toprol-Xl) 25 Mg Tabcr 12.5 MG PO DAILY, #30 TAB 5 Refills (Changed from: 25 MG; Refills: ) note lower dose Continued Medications: Aspirin (Jc Aspirin) 325 Mg Tab 325 MG PO DAILY Cholecalciferol (Vitamin D3) 2,000 Unit Cap 1 CAP PO DAILY, CAP Donepezil HCl (Donepezil HCl) 10 Mg Tab 1 TAB PO HS Finasteride (Finasteride) 5 Mg Tab 1 TAB PO DAILY Lisinopril (Lisinopril) 5 Mg Tab 5 MG PO DAILY Simvastatin (Simvastatin) 40 Mg Tab 60 MG PO DAILY Referrals At Discharge Follow up Referrals: Identification Technician Referral - Within 2 Weeks with Bora Moran M.D. Discharge Exam Physical Exam: General Appearance: WD/WN, no apparent distress ENT: pharynx normal Neck: no JVD Respiratory/Chest: no respiratory distress, no accessory muscle use, + rales (left base - minimal) Cardiovascular: regular rate, rhythm, no gallop, no murmur, normal peripheral pulses Abdomen / GI: normal bowel sounds, non tender, soft, no organomegaly Extremities: no pedal edema Neurologic/Psychiatric: no motor/sensory deficits, alert, normal reflexes Skin: no rash Hospital Course HISTORY OF PRESENT ILLNESS: 81 y/o M Hx HTN, Hyperlipidemia, dementia, syncope admission 2012, bradycardia, CAD, carotid stenosis - distant history of DE. Presents following an apparent syncopal episode. The pt was sitting at his kitchen table reading a paper. His exited the room briefly and returned to find him with his head on the table. He was unresponsive for approximately 2 minutes. No seizure activity was reported. His called their daughter who arrived a few minutes later to find the pt confused. He remained confused for at least 5 additional minutes. His symptoms had resolved on route to the hospital. Initial labs are notable for NAY. His HR on arrival to the ER was in the low 50s and improved to > 70 at the time of admission. he pt has no recollection of the episode and cannot provide a reliable ROS. Information is obtained from his and daughter. HOSPITAL COURSE: The patient was admitted to the telemetry unit and remained stable on monitoring during his observation stay. Serial troponins were normal. He had no recurrent presyncope or syncope. He was seen in consult by Dr. Moran, his primary saddle stitching machine operator, and he did not feel any arrhythmia or ACS caused the event. It was felt that his syncope was due to either low heart rate and/or low blood pressure. Suspect that the latter was the biggest culprit. The low blood pressure was likely from volume depletion. The patient had had a URI/cough for several days prior to admission and during that time period was not eating/drinking well. The patient's acute kidney injury and hyponatremia reflected his dehydration state. The volume depletion probably set him up for this event. With IV fluids the patient's sodium and creatinine improved prior to discharge ( Na was 134 and Cr was 1.3, improving from 1.9). A repeat chest x-ray later in his stay failed to show any pneumonia. However, he will complete a course of doxycycline for possible early bronchitis. To be complete he also underwent carotid dopplers as he has known carotid artery stenosis. Fortunately the dopplers were unchanged from 2013 with 50-79% stenosis b/l. At discharge the following were recommended - 1. lowering of his toprol xl to 12.5mg daily 2. doxycycline 100mg PO BID x 7 days 3. follow-up with Dr. Moran within 2 weeks 4. follow-up with his PCPs office within 1 week Total Time Spent: Greater than 30 minutes This includes examination of the patient, discharge planning, medication reconciliation, and communication with other providers. Discharge Instructions Please refer to the electronic Patient Visit Report (Discharge Instructions) for additional information. Follow-Up Neisha Garvin PA-C on FridayMay 07 at 2:30 pm. Additional Copies To Neisha Garvin P.A.; Bora Moran M.D.
== END 2017-05-02 18:31 | disposition home or self-care (01) ==
LOC: EDBD 12:22 → C.EDA 12:23 → C.MED 17:50 → ENRESERV 20:01
PROVIDERS: ADMIT Internal Medicine; ATTEND Internal Medicine
DX: R55 Syncope and collapse (principal); I25.10 Atherosclerotic heart disease of native coronary artery without angina pectoris; I25.2 Old myocardial infarction; N17.9 Acute kidney failure, unspecified; I10 Essential (primary) hypertension; E78.00 Pure hypercholesterolemia, unspecified; D50.9 Iron deficiency anemia, unspecified; Z79.82 Long term (current) use of aspirin; Z82.49 Family history of ischemic heart disease and other diseases of the circulatory system; Z79.899 Other long term (current) drug therapy; Z88.2 Allergy status to sulfonamides; Z88.8 Allergy status to other drugs, medicaments and biological substances

== ENCOUNTER → 2017-05-09 | Outpatient (CLI) | payer MEDICARE ==
[~2017-05-09] MED LIST changes: +ARC10 PO; +CHOL2000 PO; -CPRDOTS OT; +DXY100 PO; +PRS5 PO
[2017-05-09 12:17] LABS: BASO % 0.1 %; BASO ABS # 0.01 K/uL (0-0.2); EOS % 1.8 %; EOS ABS # 0.12 K/uL (0-0.5); HEMATOCRIT 38.9 % (42-52); HEMOGLOBIN 12.9 g/dL (14.0-18.0); IG# 0.04 K/uL (0.00-0.02); LYMPH ABS # 2.14 K/uL (1.2-3.4); MEAN CORPUSCULAR HEMOGLOBIN 29.5 pg (25-34); MEAN CORPUSCULAR HGB CONC 33.2 g/dl (32-36); MEAN PLATELET VOLUME 10.8 fL (7.4-10.4); MONO % 9.7 %; MONO ABS # 0.65 K/uL (0.11-0.59); NEUT % 55.8 %; NEUT ABS # 3.72 K/uL (1.4-6.5); PLATELET COUNT 196 K/uL (130-400); RED CELL DISTRIBUTION WIDTH CV 12.8 % (11.5-14.5); RED CELL DISTRIBUTION WIDTH SD 41.5 fL (36.4-46.3); WHITE BLOOD COUNT 6.68 K/uL (4.8-10.8)
[2017-05-09 12:47] LABS: ALBUMIN 3.3 gm/dl (3.4-5.0); ALKALINE PHOSPHATASE 76 U/L (45-117); ALT/SGPT 35 U/L (12-78); AST/SGOT 34 U/L (15-37); BLOOD UREA NITROGEN 20 mg/dl (7-18); CALCIUM 8.6 mg/dl (8.5-10.1); CARBON DIOXIDE 25 mmol/L (21-32); CREATININE 1.33 mg/dl (0.60-1.40); GLUCOSE 98 mg/dl (70-99); POTASSIUM 3.9 mmol/L (3.5-5.1); SODIUM 133 mmol/L (136-145)
[2017-05-09 13:01] LABS: CHOLESTEROL 125 mg/dl (0-200); LDL CHOLESTEROL CALCULATED 58 mg/dl
== END | disposition home or self-care (01) ==
LOC: C.LABBFT 09:41
PROVIDERS: ATTEND Internal Medicine Cardiovascular Disease
DX: I10 Essential (primary) hypertension (principal); D64.9 Anemia, unspecified; R73.9 Hyperglycemia, unspecified; E78.5 Hyperlipidemia, unspecified; I25.10 Atherosclerotic heart disease of native coronary artery without angina pectoris; N18.3 Chronic kidney disease, stage 3 (moderate); R79.9 Abnormal finding of blood chemistry, unspecified

== ENCOUNTER → 2017-10-08 | Outpatient (CLI) | payer MEDICARE ==
[~2017-10-08] MED LIST changes: +LISI-730 PO; -LSN5 PO
[2017-10-08 17:20] LABS: BASO % 0.5 %; BASO ABS # 0.03 K/uL (0-0.2); EOS % 2.4 %; EOS ABS # 0.16 K/uL (0-0.5); HEMATOCRIT 39.4 % (42-52); IG# 0.02 K/uL (0.00-0.02); LYMPH % 24.9 %; LYMPH ABS # 1.66 K/uL (1.2-3.4); MEAN CELL VOLUME 91.4 fL (80-100); MEAN CORPUSCULAR HEMOGLOBIN 30.2 pg (25-34); MEAN PLATELET VOLUME 10.9 fL (7.4-10.4); MONO % 7.7 %; MONO ABS # 0.51 K/uL (0.11-0.59); NEUT % 64.2 %; NEUT ABS # 4.28 K/uL (1.4-6.5); PLATELET COUNT 197 K/uL (130-400); RED CELL DISTRIBUTION WIDTH SD 43.6 fL (36.4-46.3); WHITE BLOOD COUNT 6.66 K/uL (4.8-10.8)
[2017-10-08 17:38] LABS: ALBUMIN 3.9 gm/dl (3.4-5.0); ALKALINE PHOSPHATASE 74 U/L (45-117); ALT/SGPT 30 U/L (12-78); AST/SGOT 30 U/L (15-37); BLOOD UREA NITROGEN 25 mg/dl (7-18); CARBON DIOXIDE 27 mmol/L (21-32); CREATININE 1.49 mg/dl (0.60-1.40); GLUCOSE 91 mg/dl (70-99); POTASSIUM 4.5 mmol/L (3.5-5.1); SODIUM 137 mmol/L (136-145); TOTAL PROTEIN 7.6 gm/dl (6.4-8.2)
== END | disposition home or self-care (01) ==
LOC: C.LABBFT 13:24
PROVIDERS: ATTEND Internal Medicine
DX: R45.1 Restlessness and agitation (principal); E55.9 Vitamin D deficiency, unspecified